=== PATIENT | female | born 1975 | race Caucasian/White ===

== ENCOUNTER 2022-05-17 23:47 | Inpatient (IN) | payer OTHER ==
[~2022-05-17] VITALS: Ht 152.4 cm; Wt 111.6 kg
[~2022-05-17 23:47] MED LIST: AMLO5TAB88 PO; ASPI-1497 PO; CHOL100044 PO; DICL75TA5 PO; DOCU-138 PO; FERR325T6 PO
[2022-05-18] MEDS ORDERED: KETOROLAC 60MG/2ML VIAL IM STA (01:29)
[2022-05-18 03:37] LABS: BASOPHILS % 0.8 % (0.0-2.0); EOSINOPHILS % 2.5 % (0.0-5.0); HEMATOCRIT. 32.4 % (36.0-48.0); LYMPHOCYTES % 33.6 % (20.0-50.0); MEAN CORPUSCULAR HEMOGLOBIN 19.8 pg (28.0-32.0); MEAN CORPUSCULAR VOLUME 64.3 fL (81.0-99.0); MEAN PLATELET VOLUME 8.1 fl (7.4-10.4); NEUTROPHILS % 56.1 % (40.0-76.0); PLATELET 459 x1000/uL (130-400); RED BLOOD CELL COUNT 5.04 mill/uL (4.2-5.4); RED CELL DISTRIBUTION WIDTH 19.5 % (11.6-14.6)
[2022-05-18 03:43] LABS: CHLORIDE 109 mEq/L (98-107)
[2022-05-18] MEDS ORDERED: KETOROLAC 30MG/ML VIAL IM NR (03:45)
[2022-05-18 03:57] LABS: PLATELET ESTIMATE INCREASED
[2022-05-18 08:10] LABS: CLARITY URINE CLEAR (CLEAR); COLOR URINE RED (YELLOW); KETONES URINE 1+ (NEGATIVE); LEUKOCYTE ESTERASE URINE 1+ (NEGATIVE); NITRITE URINE NEGATIVE (NEGATIVE); OCCULT BLOOD URINE 3+ (NEGATIVE); PH URINE 5.5 (4.5-8.0); PROTEIN URINE 1+ (NEGATIVE); SPECIFIC GRAVITY URINE 1.014 (1.005-1.030); UROBILINOGEN URINE 0.2 E.U./dL (0.2-1.0)
[2022-05-18] MEDS ORDERED: CLONIDINE 0.1MG TABLET PO PRN (14:00)
[2022-05-18] MEDS ORDERED: ONDANSETRON HCL 4MG/2ML INJ IV PRN (14:00)
[2022-05-18] MEDS: SODIUM CHLORIDE 0.9% 1,000 ML IV SCH (14:00)
[2022-05-18] MEDS ORDERED: ACETAMINOPHEN 325MG TABLET PO PRN (14:00)
[2022-05-18] MEDS ORDERED: DOCUSATE SODIUM 100MG CAPSULE PO PRN (14:00)
[2022-05-18] MEDS ORDERED: CEFTRIAXONE 1 G PREMIX 50 ML IV SCH ×2 (14:00→16:00)
[2022-05-18] MEDS ORDERED: KETOROLAC 30MG/ML VIAL IV SCH (14:15)
[2022-05-18] MEDS ORDERED: POTASSIUM CHLORIDE 20MEQ TABLET SR PO SCH (15:00)
[2022-05-18] MEDS: KETOROLAC 30MG/ML VIAL IV SCH (16:15)
[2022-05-18 23:14] VITALS: BP 151/75
[2022-05-19] MEDS: KETOROLAC 30MG/ML VIAL IV SCH ×4 (02:35→23:48)
[2022-05-19 07:49] LABS: BASOPHILS % 0.7 % (0.0-2.0); EOSINOPHILS % 3.2 % (0.0-5.0); HEMATOCRIT. 30.8 % (36.0-48.0); HEMOGLOBIN. 9.1 g/dL (12.0-16.0); LYMPHOCYTES % 33.7 % (20.0-50.0); MEAN CORPUSCULAR HEMOGLOBIN 20.1 pg (28.0-32.0); MEAN CORPUSCULAR VOLUME 68.2 fL (81.0-99.0); MEAN PLATELET VOLUME 8.6 fl (7.4-10.4); MONOCYTES % 7.3 % (2.0-8.0); NEUTROPHILS % 55.1 % (40.0-76.0); PLATELET 376 x1000/uL (130-400); RED BLOOD CELL COUNT 4.51 mill/uL (4.2-5.4)
[2022-05-19 07:55] LABS: CHLORIDE 109 mEq/L (98-107)
[2022-05-19 08:00] VITALS: BP 142/64
[2022-05-19] MEDS: SODIUM CHLORIDE 0.9% 1,000 ML IV SCH ×2 (10:13)
[2022-05-19 12:00] VITALS: BP 165/80
[2022-05-19] MEDS: CEFTRIAXONE 1,000 MG in DEXTROSE 5% WATER 50 ML IV SCH (17:40)
[2022-05-19 20:00] VITALS: BP 143/70
[2022-05-20] VITALS (7 sets, daily range): BP systolic 136–151; BP diastolic 55–90
[2022-05-20 08:22] LABS: BASOPHILS % 0.8 % (0.0-2.0); EOSINOPHILS % 3.9 % (0.0-5.0); HEMATOCRIT. 30.2 % (36.0-48.0); HEMOGLOBIN. 9.2 g/dL (12.0-16.0); MEAN CORPUSCULAR HEMOGLOBIN 20.2 pg (28.0-32.0); MEAN CORPUSCULAR VOLUME 65.9 fL (81.0-99.0); MEAN PLATELET VOLUME 9.1 fl (7.4-10.4); NEUTROPHILS % 51.3 % (40.0-76.0); PLATELET 370 x1000/uL (130-400); RED BLOOD CELL COUNT 4.58 mill/uL (4.2-5.4); RED CELL DISTRIBUTION WIDTH 18.8 % (11.6-14.6)
[2022-05-20] MEDS: KETOROLAC 30MG/ML VIAL IV SCH ×2 (08:27→16:06)
[2022-05-20 08:56] LABS: CHLORIDE 108 mEq/L (98-107)
[2022-05-20] MEDS ORDERED: POTASSIUM CHLORIDE 20MEQ TABLET SR PO NR (13:15)
[2022-05-20] MEDS: CEFTRIAXONE 1,000 MG in DEXTROSE 5% WATER 50 ML IV SCH (16:00)
== END 2022-05-20 17:05 | disposition home or self-care (01) ==
LOC: ER 23:47 → 6EST 05-18 07:07 → ENRESERV 05-18 21:03
PROVIDERS: ADMIT Internal Medicine; ATTEND Internal Medicine
DX: K80.20 Calculus of gallbladder without cholecystitis without obstruction (principal); K76.0 Fatty (change of) liver, not elsewhere classified; D50.9 Iron deficiency anemia, unspecified; I10 Essential (primary) hypertension; E66.01 Morbid (severe) obesity due to excess calories; K82.8 Other specified diseases of gallbladder; N39.0 Urinary tract infection, site not specified; M19.90 Unspecified osteoarthritis, unspecified site; M79.7 Fibromyalgia; M54.50 Low back pain, unspecified; G89.29 Other chronic pain; Z68.42 Body mass index [BMI] 45.0-49.9, adult; Z79.82 Long term (current) use of aspirin; Z98.891 History of uterine scar from previous surgery
CPT/HCPCS: 36415; 71045; 74181; 76705; 80048; 80053; 80076; 81003; 81025; 85025; 99285; J0696; J1885; J7060